=== PATIENT | female | born 1965 | race Caucasian/White ===

== ENCOUNTER 2021-04-05 09:28 | Day surgery (SDC) | payer OTHER ==
[~2021-04-05] VITALS: Ht 175.3 cm; Wt 80.3 kg
[~2021-04-05 09:28] MED LIST: ALPR.5 PO; ASCO500 PO; BUTASPCAFT PO; Cranberry300 MG PO; Estradiol1 MG PO; HYDACE5 PO; HYDCHL25 PO; IBUP800 PO; LEVO T PO; LEVOXYL PO; LIOT5 PO; MELA3 PO; MULTIPLE VITAM1 EACH PO; MULVITMIND PO; OXYACE5T PO; PROG100 PO; SYNTHROID0.2 MG PO; VENL75ER PO; Venlafaxine HCl75 MG PO
--- NOTE | 2021-04-05 10:31 | NUR ---
04/05/21 1030 Lyndsay Cruz SCOPOLAMINE PATCH APPLIED TO BEHIND LEFT EAR PER ANESTHESIA ORDERS.
--- NOTE | 2021-04-05 10:53 | NUR ---
04/05/21 1053 Alireza Desir BUPIVACAINE 0.5% 150 MLS MIXED W/ EPI 0.15ML PER ORDER TO MAKE BUPIVACAINE 0.5% 1:200,000 FOR INJECTION AT OPSITE BY DR. MARCUS. 30 MLS INJECTED.
== END 2021-04-05 12:55 | disposition home or self-care (01) ==
LOC: ORSCSDS 09:28
PROVIDERS: Podiatrist Foot & Ankle Surgery
PROC: 0QBL0ZZ Excision of Right Tarsal, Open Approach (ICD-10-PCS; principal; 2021-04-05 10:45)
DX: M24.571 Contracture, right ankle (principal); M65.28 Calcific tendinitis, other site; E03.9 Hypothyroidism, unspecified
CPT/HCPCS: A9270; C1713; J0171; J0690; J1100; J2250; J2405; J2704; J3010; J7030; J7120

== ENCOUNTER 2021-07-21 11:46 | Day surgery (SDC) | payer OTHER ==
[~2021-07-21] VITALS: Ht 175.3 cm; Wt 83.3 kg
--- NOTE | 2021-07-21 14:34 | NUR ---
07/21/21 1434 Srinivas Taylor 0.15MG EPI ADDED TO 30 ML'S 0.5% BUPIVACAINE TO ACIEVE SOLUTION OF 0.5% BUPIVACAINE WITH EPI 1:200,000.
== END 2021-07-21 17:00 | disposition home or self-care (01) ==
LOC: ORSCSDS 11:46
PROVIDERS: Podiatrist Foot & Ankle Surgery
PROC: 0LQN0ZZ Repair Right Lower Leg Tendon, Open Approach (ICD-10-PCS; principal; 2021-07-21 13:15)
PROC: 0L8N0ZZ Division of Right Lower Leg Tendon, Open Approach (ICD-10-PCS; principal; 2021-07-21 13:15)
DX: S86.011A Strain of right Achilles tendon, initial encounter (principal); E03.9 Hypothyroidism, unspecified; F41.9 Anxiety disorder, unspecified; Z79.899 Other long term (current) drug therapy
CPT/HCPCS: A9270; C1713; J0171; J0690; J1100; J1885; J2250; J2405; J2704; J3010; J7120

== ENCOUNTER 2022-03-04 02:10 | Day surgery (SDC) | payer OTHER ==
[~2022-03-04 02:10] MED LIST changes: +Buspirone HCl15 MG PO; +SULTRIDS PO
== END 2022-03-04 23:24 | disposition home or self-care (01) ==
LOC: WOUND 02:10
DX: T81.31XD Disruption of external operation (surgical) wound, not elsewhere classified, subsequent encounter (principal); Y83.8 Other surgical procedures as the cause of abnormal reaction of the patient, or of later complication, without mention of misadventure at the time of the procedure; G47.30 Sleep apnea, unspecified; I10 Essential (primary) hypertension
CPT/HCPCS: G0463

== ENCOUNTER 2022-03-18 10:00 | Day surgery (SDC) | payer OTHER | END 2022-03-18 23:17 | disposition home or self-care (01) | LOC: WOUND 10:00 | DX: T81.31XA Disruption of external operation (surgical) wound, not elsewhere classified, initial encounter (principal) | CPT/HCPCS: G0463 ==

== ENCOUNTER 2022-03-22 02:02 | Day surgery (SDC) | payer OTHER | END 2022-03-22 23:17 | disposition home or self-care (01) | LOC: WOUND 02:02 | DX: T81.31XD Disruption of external operation (surgical) wound, not elsewhere classified, subsequent encounter (principal); L97.212 Non-pressure chronic ulcer of right calf with fat layer exposed | CPT/HCPCS: A9270 ==

== ENCOUNTER 2022-05-03 10:52 | Day surgery (SDC) | payer OTHER | END 2022-05-03 23:42 | disposition home or self-care (01) | LOC: WOUND 10:52 | DX: T81.32XA Disruption of internal operation (surgical) wound, not elsewhere classified, initial encounter (principal) | CPT/HCPCS: A9270 ==

== ENCOUNTER 2022-05-17 03:58 | Day surgery (SDC) | payer OTHER | END 2022-05-17 23:24 | disposition home or self-care (01) | LOC: WOUND 03:58 | DX: L97.212 Non-pressure chronic ulcer of right calf with fat layer exposed (principal); T81.31XD Disruption of external operation (surgical) wound, not elsewhere classified, subsequent encounter | CPT/HCPCS: A9270; G0463 ==

== ENCOUNTER 2022-05-20 08:51 | Day surgery (SDC) | payer OTHER | END 2022-05-20 23:25 | disposition home or self-care (01) | LOC: WOUND 08:51 | DX: L03.115 Cellulitis of right lower limb (principal); T81.31XD Disruption of external operation (surgical) wound, not elsewhere classified, subsequent encounter; L97.212 Non-pressure chronic ulcer of right calf with fat layer exposed | CPT/HCPCS: 87070; 87147; 87205; G0463 ==

== ENCOUNTER 2022-05-31 03:24 | Day surgery (SDC) | payer OTHER | END 2022-05-31 22:46 | disposition home or self-care (01) | LOC: WOUND 03:24 | DX: T81.32XA Disruption of internal operation (surgical) wound, not elsewhere classified, initial encounter (principal) | CPT/HCPCS: A9270; G0463 ==

== ENCOUNTER 2022-06-10 12:17 | Day surgery (SDC) | payer OTHER ==
[~2022-06-10] VITALS: Ht 177.8 cm; Wt 88.2 kg
--- NOTE | 2022-06-10 17:25 | NUR ---
Dressing to procedure site clean, dry, intact with no visible drainage, swelling, erythema or bruising noted. CMS WNL, MOVES TOES WELL Discharge instructions reviewed with patient. Patient verbalizes understanding. Copy given to patient to take home. Discharged via wheelchair to private car for ride home.
== END 2022-06-10 23:12 | disposition home or self-care (01) ==
LOC: ORD 12:17 → ORSCMMR 12:17 → ORD 13:00
PROVIDERS: Podiatrist Foot & Ankle Surgery
PROC: 0LBN0ZZ Excision of Right Lower Leg Tendon, Open Approach (ICD-10-PCS; principal; 2022-06-10 14:30)
DX: T81.89XD Other complications of procedures, not elsewhere classified, subsequent encounter (principal); E03.9 Hypothyroidism, unspecified; Z79.899 Other long term (current) drug therapy; G47.33 Obstructive sleep apnea (adult) (pediatric); F41.8 Other specified anxiety disorders
CPT/HCPCS: A9270; J0690; J1885; J2250; J2704; J2795; J3010; J7120

== ENCOUNTER 2022-06-24 01:10 | Day surgery (SDC) | payer OTHER | END 2022-06-24 23:17 | disposition home or self-care (01) | LOC: WOUND 01:10 | DX: T81.41XA Infection following a procedure, superficial incisional surgical site, initial encounter (principal); L03.115 Cellulitis of right lower limb; L97.212 Non-pressure chronic ulcer of right calf with fat layer exposed; Y83.8 Other surgical procedures as the cause of abnormal reaction of the patient, or of later complication, without mention of misadventure at the time of the procedure | CPT/HCPCS: A9270; G0463 ==

== ENCOUNTER 2022-07-01 01:59 | Day surgery (SDC) | payer OTHER | END 2022-07-02 23:37 | disposition home or self-care (01) | LOC: WOUND 01:59 | DX: T81.32XA Disruption of internal operation (surgical) wound, not elsewhere classified, initial encounter (principal); T81.41XA Infection following a procedure, superficial incisional surgical site, initial encounter; L97.212 Non-pressure chronic ulcer of right calf with fat layer exposed | CPT/HCPCS: A9270 ==

== ENCOUNTER 2022-07-08 00:25 | Day surgery (SDC) | payer OTHER | END 2022-07-08 23:34 | disposition home or self-care (01) | LOC: WOUND 00:25 | DX: T81.32XA Disruption of internal operation (surgical) wound, not elsewhere classified, initial encounter (principal); T81.41XA Infection following a procedure, superficial incisional surgical site, initial encounter; L97.212 Non-pressure chronic ulcer of right calf with fat layer exposed | CPT/HCPCS: G0463 ==

== ENCOUNTER 2022-07-22 03:08 | Day surgery (SDC) | payer OTHER | END 2022-07-22 23:18 | disposition home or self-care (01) | LOC: WOUND 03:08 | DX: T81.32XA Disruption of internal operation (surgical) wound, not elsewhere classified, initial encounter (principal); L97.212 Non-pressure chronic ulcer of right calf with fat layer exposed | CPT/HCPCS: A9270; G0463 ==

== ENCOUNTER 2022-10-18 02:41 | Day surgery (SDC) | payer OTHER | END 2022-10-18 22:59 | disposition home or self-care (01) | LOC: WOUND 02:41 | DX: T81.49XA Infection following a procedure, other surgical site, initial encounter (principal); T81.31XA Disruption of external operation (surgical) wound, not elsewhere classified, initial encounter; L97.312 Non-pressure chronic ulcer of right ankle with fat layer exposed; R22.41 Localized swelling, mass and lump, right lower limb; Y83.9 Surgical procedure, unspecified as the cause of abnormal reaction of the patient, or of later complication, without mention of misadventure at the time of the procedure | CPT/HCPCS: G0463 ==

== ENCOUNTER 2022-11-25 00:55 | Day surgery (SDC) | payer OTHER ==
[2022-11-25] MEDS ORDERED: ERTAPENEM1 G1 IV (08:25)
[2022-11-25 08:48] VITALS: BP 151/86
== END 2022-11-25 08:33 | disposition home or self-care (01) ==
LOC: ATC 00:55
DX: M65.879 Other synovitis and tenosynovitis, unspecified ankle and foot (principal)
CPT/HCPCS: 99211

== ENCOUNTER 2022-12-02 02:32 | Day surgery (SDC) | payer OTHER ==
[~2022-12-02 02:32] MED LIST changes: +ERTAPENEM1 G1 IV
[2022-12-02 09:53] VITALS: BP 135/80
[2022-12-02 10:21] LABS: BASOPHILS ABSOLUTE AUTO 0.05 K/mm3 (0.00-0.23); BASOPHILS PERCENT AUTO 1 % (0-2); EOSINOPHILS ABSOLUTE AUTO 0.37 K/mm3 (0.00-0.68); EOSINOPHILS PERCENT AUTO 7 % (0-6); Hematocrit 44.5 % (33.0-51.0); Hemoglobin 15.5 g/dL (11.5-16.0); IMMATURE GRAN ABSOLUTE AUTO 0.01 K/mm3 (0.00-0.10); IMMATURE GRAN PERCENT AUTO 0 % (0-1); LYMPHOCYTES ABSOLUTE AUTO 2.04 K/mm3 (0.84-5.20); LYMPHOCYTES PERCENT AUTO 38 % (21-46); MONOCYTES PERCENT AUTO 6 % (4-13); Mean Corpuscular HGB 30.9 pg (26.0-34.0); Mean Corpuscular HGB Conc 34.8 g/dL (31.5-36.5); Mean Corpuscular Volume 89 fL (80-100); NEUTROPHILS ABSOLUTE AUTO 2.63 K/mm3 (1.96-9.15); NEUTROPHILS PERCENT AUTO 49 % (41-73); Platelet Count 261 K/mm3 (150-400); RDW Coefficient Variation 13.2 % (11.7-14.2); RDW Standard Deviation 42.9 fL (35.1-46.3); Red Blood Cell Count 5.01 M/mm3 (3.80-5.20)
[2022-12-02 10:39] LABS: Albumin, Blood 3.8 g/dL (3.4-5.0); Bilirubin, Total 0.2 mg/dL (0.1-1.0); Bun/Creatinine Ratio 14.3 (12.0-20.0); C-REACTIVE PROTEIN, EXT RANGE 0.447 mg/dL (0.000-0.300); Creatinine, Blood 0.63 mg/dL (0.40-1.00); Globulin, Blood 3.7 g/dL (2.2-4.0); Potassium, Blood 4.4 mmol/L (3.5-5.5); Total Protein, Blood 7.5 g/dL (6.4-8.2)
== END 2022-12-02 10:06 | disposition home or self-care (01) ==
LOC: ATC 02:32
PROVIDERS: Internal Medicine Infectious Disease
DX: M65.879 Other synovitis and tenosynovitis, unspecified ankle and foot (principal)
CPT/HCPCS: 36592; 80053; 85025; 86140

== ENCOUNTER 2022-12-16 03:04 | Day surgery (SDC) | payer OTHER ==
[2022-12-16 10:03] VITALS: BP 142/79
[2022-12-16 10:59] LABS: BASOPHILS ABSOLUTE AUTO 0.04 K/mm3 (0.00-0.23); BASOPHILS PERCENT AUTO 1 % (0-2); EOSINOPHILS ABSOLUTE AUTO 0.31 K/mm3 (0.00-0.68); EOSINOPHILS PERCENT AUTO 6 % (0-6); Hematocrit 44.2 % (33.0-51.0); Hemoglobin 15.3 g/dL (11.5-16.0); IMMATURE GRAN ABSOLUTE AUTO 0.01 K/mm3 (0.00-0.10); IMMATURE GRAN PERCENT AUTO 0 % (0-1); LYMPHOCYTES ABSOLUTE AUTO 2.23 K/mm3 (0.84-5.20); LYMPHOCYTES PERCENT AUTO 45 % (21-46); MONOCYTES ABSOLUTE AUTO 0.38 K/mm3 (0.16-1.47); MONOCYTES PERCENT AUTO 8 % (4-13); Mean Corpuscular HGB 30.6 pg (26.0-34.0); Mean Corpuscular HGB Conc 34.6 g/dL (31.5-36.5); Mean Corpuscular Volume 88 fL (80-100); NEUTROPHILS ABSOLUTE AUTO 1.96 K/mm3 (1.96-9.15); NEUTROPHILS PERCENT AUTO 40 % (41-73); Platelet Count 276 K/mm3 (150-400); RDW Coefficient Variation 12.8 % (11.7-14.2); RDW Standard Deviation 41.9 fL (35.1-46.3); White Blood Cell Count 4.93 K/mm3 (4.00-11.30)
[2022-12-16 11:13] LABS: Alanine Aminotransfer (ALT/SGP 39 U/L (12-78); Albumin/Globulin Ratio 1.2 (0.8-1.8); Alk Phos 95 U/L (50-136); Anion Gap 3 mmol/L (6-16); Aspartate Aminotrans (AST/SGOT 22 U/L (12-37); Bilirubin, Total 0.5 mg/dL (0.1-1.0); Blood Urea Nitrogen 11 mg/dL (8-24); Bun/Creatinine Ratio 14.8 (12.0-20.0); C-REACTIVE PROTEIN, EXT RANGE <0.290 mg/dL (0.000-0.300); CO2, Blood 30 mmol/L (21-32); Calcium, Blood 10.1 mg/dL (8.5-10.1); Chloride, Blood 105 mmol/L (98-108); Creatinine, Blood 0.74 mg/dL (0.40-1.00); Globulin, Blood 3.4 g/dL (2.2-4.0); Glomerular Filtration Rate 94 (60-); Glucose, Blood 126 mg/dL (70-99); Sodium, Blood 138 mmol/L (136-145); Total Protein, Blood 7.4 g/dL (6.4-8.2)
== END 2022-12-16 10:18 | disposition home or self-care (01) ==
LOC: ATC 03:04
PROVIDERS: Internal Medicine Infectious Disease
DX: M65.879 Other synovitis and tenosynovitis, unspecified ankle and foot (principal)
CPT/HCPCS: 36592; 80053; 85025; 86140

== ENCOUNTER 2022-12-23 11:27 | Day surgery (SDC) | payer OTHER | END 2022-12-23 11:36 | disposition home or self-care (01) | LOC: ATC 11:27 | DX: M65.879 Other synovitis and tenosynovitis, unspecified ankle and foot (principal) | CPT/HCPCS: 99211 ==

== ENCOUNTER → 2022-12-23 | Outpatient (CLI) | payer OTHER | END | disposition home or self-care (01) | LOC: LAB SHORT 06:30 → LAB 06:30 | DX: R14.0 Abdominal distension (gaseous) (principal) | CPT/HCPCS: 87338 ==

== ENCOUNTER 2023-07-21 11:02 | Day surgery (SDC) | payer OTHER ==
[~2023-07-21] VITALS: Ht 175.3 cm; Wt 90.5 kg
[~2023-07-21 11:02] MED LIST changes: +LINE600; +LIOT5; +VENL75ER
[2023-07-21 13:12] VITALS: BP 128/76
== END 2023-07-21 12:59 | disposition home or self-care (01) ==
LOC: ORSCSDS 11:02
PROVIDERS: Specialist
PROC: 0DJD8ZZ Inspection of Lower Intestinal Tract, Via Natural or Artificial Opening Endoscopic (ICD-10-PCS; principal; 2023-07-21 12:15)
PROC: 0DB68ZX Excision of Stomach, Via Natural or Artificial Opening Endoscopic, Diagnostic (ICD-10-PCS; principal; 2023-07-21 12:15)
PROC: 0DB58ZX Excision of Esophagus, Via Natural or Artificial Opening Endoscopic, Diagnostic (ICD-10-PCS; principal; 2023-07-21 12:15)
DX: K21.9 Gastro-esophageal reflux disease without esophagitis (principal); Z12.11 Encounter for screening for malignant neoplasm of colon; Z86.010 Personal history of colon polyps; Z80.0 Family history of malignant neoplasm of digestive organs; E05.00 Thyrotoxicosis with diffuse goiter without thyrotoxic crisis or storm; K44.9 Diaphragmatic hernia without obstruction or gangrene; K57.30 Diverticulosis of large intestine without perforation or abscess without bleeding; K64.8 Other hemorrhoids; K31.89 Other diseases of stomach and duodenum; Z79.899 Other long term (current) drug therapy
CPT/HCPCS: 43239; G0105; 88305; 88342; J2704; J7120

== ENCOUNTER → 2024-04-29 | Outpatient (CLI) | payer MEDICARE, OTHER | LOC: LAB 14:29 → LAB SHORT 14:29 | DX: D10.4 Benign neoplasm of tonsil (principal) | CPT/HCPCS: 88305 ==

== ENCOUNTER 2024-07-01 08:13 | Day surgery (SDC) | payer MEDICARE, OTHER ==
[~2024-07-01] VITALS: Ht 175.3 cm; Wt 89.6 kg
[~2024-07-01 08:13] MED LIST changes: +Lactated Ringer's 1,000 ML IV ONE
[2024-07-01] MEDS ORDERED: Lactated Ringer's 1,000 ML IV ONE ×2 (08:54→11:28)
[2024-07-01] MEDS ORDERED: EUTHYROX175 MC1 PO (08:56)
[2024-07-01] MEDS ORDERED: PROZAC2010 PO (08:57)
[2024-07-01] MEDS ORDERED: PRED20 PO (08:57)
[2024-07-01] MEDS ORDERED: MINO2.5 PO (08:58)
[2024-07-01] MEDS ORDERED: SEMGLEE (Y100 UNIT/2 SQ (08:58)
[2024-07-01] MEDS ORDERED: ZEGERID 40 MG1 EACH (08:59)
[2024-07-01] MEDS ORDERED: LINE600 PO (09:01)
[2024-07-01] MEDS ORDERED: Lidocaine 2%-Epineph 1:200000 20 ML SDV ONE (09:31)
[2024-07-01] MEDS ORDERED: EPINEPhrine HCl 1 MG / ML 30ML Vial ONE ×2 (09:31→09:42)
[2024-07-01] MEDS ORDERED: Lidocaine HCl 4% 5 ML SDA ONE (09:42)
[2024-07-01] MEDS ORDERED: propofoL 100 ML IV ONE (09:44)
[2024-07-01] MEDS ORDERED: Remifentanil 1 MG Vial ONE ×4 (09:44→11:45)
[2024-07-01] MEDS ORDERED: Ondansetron HCl 2 MG / ML 2ML Vial ONE ×2 (09:50→14:03)
[2024-07-01] MEDS ORDERED: Dexamethasone Sod Phos 10 MG/ML 1ML VIAL ONE (09:50)
[2024-07-01] MEDS ORDERED: Rocuronium Bromide 10 MG/ML 5ML Injection IV ONE ×2 (09:50→10:32)
[2024-07-01] MEDS ORDERED: HYDROmorphone HCl/Pf 1MG SYR ONE (09:51)
[2024-07-01] MEDS ORDERED: Tranexamic Acid 100 ML IV ONE (10:15)
[2024-07-01] MEDS ORDERED: propofoL 60 ML IV ONE (10:46)
[2024-07-01] MEDS ORDERED: propofoL 40 ML IV ONE ×2 (11:40→12:35)
[2024-07-01] MEDS ORDERED: Sugammadex Sodium 200 MG/2ML SDV (100 MG/ML) ONE (12:57)
[2024-07-01] MEDS ORDERED: Midazolam HCl 1MG / ML 2ML Vial ONE (13:15)
[2024-07-01] MEDS ORDERED: FentaNYL Citrate 50 MCG/ML 2 ML Injection ONE ×2 (13:30→14:18)
[2024-07-01] MEDS ORDERED: Dexmedetomidine HCL 200 MCG / 2 ML ONE (14:05)
--- NOTE | 2024-07-01 14:21 | NUR ---
07/01/24 1421 Swapna Smith PT REPORTING CONTINUED HEAD PAIN INSPITE OF MEDICATION, DIMING LIGHTS, COLD PRESS. WILL CONTINUE TO TREAT AND MONITOR
[2024-07-01 14:26] VITALS: BP 134/76
== END 2024-07-01 14:51 | disposition home or self-care (01) ==
LOC: ORSCSDS 08:13
PROVIDERS: Otolaryngology
PROC: 09CX4ZZ Extirpation of Matter from Left Sphenoid Sinus, Percutaneous Endoscopic Approach (ICD-10-PCS; principal; 2024-07-01 09:45)
PROC: 09DU4ZZ Extraction of Right Ethmoid Sinus, Percutaneous Endoscopic Approach (ICD-10-PCS; principal; 2024-07-01 09:45)
PROC: 09SM4ZZ Reposition Nasal Septum, Percutaneous Endoscopic Approach (ICD-10-PCS; principal; 2024-07-01 09:45)
PROC: 09DV4ZZ Extraction of Left Ethmoid Sinus, Percutaneous Endoscopic Approach (ICD-10-PCS; principal; 2024-07-01 09:45)
DX: E10.69 Type 1 diabetes mellitus with other specified complication (principal); J32.4 Chronic pansinusitis; J34.2 Deviated nasal septum; J34.3 Hypertrophy of nasal turbinates; I10 Essential (primary) hypertension; G47.33 Obstructive sleep apnea (adult) (pediatric); E05.00 Thyrotoxicosis with diffuse goiter without thyrotoxic crisis or storm; Z79.899 Other long term (current) drug therapy
CPT/HCPCS: 36415; 80053; 80061; 82043; 82570; 82947; 85025; 88305; 88311; C2625; J0171; J1100; J1171; J2003; J2250; J2405; J2704; J3010; J7120